=== PATIENT | male | born 1960 | race Caucasian/White ===

== ENCOUNTER 2018-06-30 14:15 | Inpatient (IN) | payer MEDICAID ==
[~2018-06-30] VITALS: Ht 177.8 cm; Wt 99.8 kg
--- NOTE | 2018-06-30 14:15 | NUR ---
PT [facility]IB RA[facility]PT PLACED IN ROOM 2A.
--- NOTE | 2018-06-30 14:25 | NUR ---
PT IS IN ROOM #2A. DR SOTOMAYOR EVALUATED THE PT.
--- NOTE | 2018-06-30 14:27 | NUR ---
TELESTROKE ([phone]) WAS CALLED BY JEANNETTE RIVAS. TALKED TO DISPATCHER JV. NEUROLOGIST DR ROPER WAS PAGED.
--- NOTE | 2018-06-30 14:30 | NUR ---
Pt's brother arrived and is speaking with at bedside. Pt's brother providing new information not reported by EMS. Pt's brother states the pt called him around 0900 this morning with dysphagia.
--- NOTE | 2018-06-30 14:34 | NUR ---
Code Stroke activated per order, Telestroke Line called.
--- NOTE | 2018-06-30 14:40 | NUR ---
Pt to CT with ACLS guidelines in place with rfid technician and Ravindra MACHADO.
--- NOTE | 2018-06-30 14:43 | NUR ---
spoke with (Neuro) via telephone.
[2018-06-30] MEDS ORDERED: IV NORMAL SALINE 500 ML BAG IV ONE (14:45)
[2018-06-30 14:48] LABS: BASOPHILS # (AUTO) 0.1 K/uL (0.0-8.0); BASOPHILS % (AUTO) 0.9 % (0.0-2.0); EOSINOPHILS # (AUTO) 0.1 K/uL (0.0-0.7); HEMATOCRIT 43.9 % (36.7-47.1); HEMOGLOBIN 14.8 g/dL (12.5-16.3); LYMPHOCYTES # (AUTO) 1.7 K/uL (20.0-40.0); LYMPHOCYTES % (AUTO) 15.9 % (20.5-51.5); MEAN CORPUSCULAR HEMOGLOBIN 27.4 uug (23.8-33.4); MEAN CORPUSCULAR HGB CONC 34 g/dL (32.5-36.3); MEAN CORPUSCULAR VOLUME 81.5 fL (73.0-96.2); MONOCYTES # (AUTO) 0.8 K/uL (2.0-10.0); MONOCYTES % (AUTO) 7.3 % (0.0-11.0); NEUTROPHILS % (AUTO) 74.9 % (38.5-71.5); PLATELET COUNT (AUTO) 185 K/uL (152-348); RED BLOOD CELL COUNT(AUTO) 5.39 MIL/uL (4.06-5.63); WHITE BLOOD COUNT (AUTO) 10.7 K/uL (3.6-10.2)
[2018-06-30] MEDS ORDERED: IV NORMAL SALINE 250 ML IV ONE (14:52)
[2018-06-30] MEDS ORDERED: NORMAL SALINE FLUSH 10 ML DISP.SYRIN ONE (14:52)
[2018-06-30] MEDS ORDERED: IOHEXOL 350 100 ML INFUS..BTL ONE (14:52)
[2018-06-30] MEDS ORDERED: SWABABLE VALVE TRANSFER SET EA MC ONE (14:52)
[2018-06-30] MEDS ORDERED: ASPIRIN EC 325 MG TABLET.DR PO ONE (15:26)
[2018-06-30] MEDS ORDERED: ASPIRIN EC 325 MG TABLET.DR PO SCH (15:30)
--- NOTE | 2018-06-30 15:59 | NUR ---
CODE STROKE WAS CLEARED BY DR SOTOMAYOR. PT IS RESTING IN BED COMFOTRTABLY. CONTINUE TO MONITOR THE PT.
[2018-06-30] MEDS ORDERED: IBUPROFEN PO (16:55)
--- NOTE | 2018-06-30 17:39 | NUR ---
PT WAS TRANSFERED TO [facility] ROOM #318. REPORT WAS GIVEN TO RN [facility].
[2018-06-30 17:47] VITALS: BP 143/82
[2018-06-30] MEDS ORDERED: hydrALAZINE HCL 20 MG/1 ML VIAL IV PRN (19:30)
[2018-06-30 19:51] LABS: *BILIRUBIN,URIN NEGATIVE (NEGATIVE); *BLOOD, URINE NEGATIVE (NEGATIVE); *COLOR,URINE YELLOW (YELLOW); *KETONES,URINE NEGATIVE (NEGATIVE); *UROBILINOGEN,URINE 0.2 E.U./dl (NORMAL); LEUKOCYTE ESTERASE ,URINE NEGATIVE (NEGATIVE); NITRITE, URINE NEGATIVE (NEGATIVE); PH,URINE 7.5 (5.0-8.0); UGLUCOSE NEGATIVE (NEGATIVE)
[2018-06-30 20:00] VITALS: BP 138/94
[2018-06-30 20:00] LABS: *CLARITY,URINE SLIGHTLY HAZY (CLEAR)
--- NOTE | 2018-06-30 20:00 | NUR ---
RECEIVED PT AWAKE, ALERT & ORIENTED X3. LEFT UPPER & LOWER EXTREMITIES WEAK & HAS R FACIAL DROOP. DENIES DISCOMFORTS. HEP LOCK INTACT & PATENT ON LEFT AC. C-SCOPE SR NO ECTOPY. NOT IN ANY DISTRESS.
[2018-06-30 20:01] LABS: MUCUS,URINE MANY /LPF (0-FEW); RBC,URINE 0-3 /HPF (0-3); URINE AMORPHOUS PHOSPHATES MODERATE /HPF
[2018-06-30 20:11] LABS: *AMPHETAMINE, URINE NEGATIVE (NEGATIVE); *BARBITURATE, URINE NEGATIVE (NEGATIVE); *CANNABINOID, URINE NEGATIVE (NEGATIVE); *COCCAINE, URINE NEGATIVE (NEGATIVE); *OPIATE, URINE NEGATIVE (NEGATIVE); *PHENCYCLIDINE SCREEN,URINE NEGATIVE (NEGATIVE)
[2018-06-30 20:39] VITALS: BP 138/94
--- NOTE | 2018-06-30 20:45 | NUR ---
DR HAMPTON WAS HERE & EVALUATED PT. W/ ORDERS
[2018-06-30] MEDS: BLOOD SUGAR DIAGNOSTIC 1 EACH STRIP VI SCH (21:11)
--- NOTE | 2018-06-30 23:00 | NUR ---
CLEANED & KEPT DRY, PT IS INCONT. OF URINE @ TIMES. REPOSITIONED HIMSELF .
[2018-07-01] VITALS (10 sets, daily range): BP systolic 91–148; BP diastolic 48–96
[2018-07-01] MEDS ORDERED: BLOOD SUGAR DIAGNOSTIC 1 EACH STRIP VI SCH
--- NOTE | 2018-07-01 06:00 | NUR ---
NEURO REMAINS THE SAME. HEP LOCK INTACT & PATENT.
[2018-07-01] MEDS: BLOOD SUGAR DIAGNOSTIC 1 EACH STRIP VI SCH ×4 (06:54→20:54)
[2018-07-01 07:12] LABS: BASOPHILS % (AUTO) 0.6 % (0.0-2.0); EOSINOPHILS # (AUTO) 0.2 K/uL (0.0-0.7); HEMATOCRIT 46.5 % (36.7-47.1); HEMOGLOBIN 15.8 g/dL (12.5-16.3); LYMPHOCYTES # (AUTO) 1.5 K/uL (20.0-40.0); LYMPHOCYTES % (AUTO) 17.9 % (20.5-51.5); MEAN CORPUSCULAR HEMOGLOBIN 27.7 uug (23.8-33.4); MEAN CORPUSCULAR HGB CONC 34 g/dL (32.5-36.3); MEAN CORPUSCULAR VOLUME 81.5 fL (73.0-96.2); MONOCYTES # (AUTO) 0.7 K/uL (2.0-10.0); MONOCYTES % (AUTO) 8.9 % (0.0-11.0); NEUTROPHILS # (AUTO) 5.7 K/uL (1.8-8.9); NEUTROPHILS % (AUTO) 70.6 % (38.5-71.5); PLATELET COUNT (AUTO) 191 K/uL (152-348); WHITE BLOOD COUNT (AUTO) 8.1 K/uL (3.6-10.2)
[2018-07-01 07:49] LABS: POTASSIUM 3.5 mmol/L (3.5-5.1)
[2018-07-01 07:50] LABS: CREATININE 0.9 mg/dL (0.6-1.3)
[2018-07-01] MEDS: ASPIRIN EC 81 MG TABLET.DR PO SCH (08:43)
[2018-07-01] MEDS: DOCUSATE SODIUM 100 MG CAPSULE PO SCH (08:43)
--- NOTE | 2018-07-01 15:02 | NUR ---
Social work consult: bingo worker received consult for "stroke". bingo worker arrived at patient bedside and introduced self, role, and purpose of visit. Patient was open for conversation. Patient presents with normal affect and euthymic mood. Patient appearance is neat and clean. Patient speech is within normal limits, though difficult to understand at times due to Haitian accent. Patient thought process is linear and goal-directed. Patient thought content is within normal limits given situation. Patient insight is intact and judgment intact. Patient is a 57 year old male who was admitted to [facility] after a CVA stroke. Patient reports that he was at home and felt "dizzy" and fell. Patient states he later called 911 to come to hospital. 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 Patient is supported by his brother, Esvin Robles [[phone]], and his two nieces. Per patient, his family is coming to visit later this afternoon. bingo worker facilitated conversation about patient recent stroke and how patient is adjusting to prognosis. Patient expressed concern that he will be unable to work as a driver's license reviewing officer. bingo worker offered supportive and emotional counseling to patient. Patient thought process is linear and goal-directed as patient is focused on recovering stating "I need to do exercises and go to the gym". 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 bingo worker informed patient of other resources such as counseling and community support. Patient stated that as of now he would just like disability resources. bingo worker left room to retrieve resources. bingo worker returned to room with disability resources including "What is disability insurance?", "Am I Eligible for Disability Insuracne?", "Applying for Disability Insurance Process", and informed patient that criminal justice social worker had submitted a request for Disability Application to be mailed to his address: [address] [place] [address]. [address], [place] [address]. Patient agreeable and accepting of resources. bingo worker provided patient with contact information and will remain available to patient as needed during admission to hospital.
--- NOTE | 2018-07-01 18:48 | NUR ---
Pt is observed resting bed. Pt failed swallow eval. Tomorrow pt will have video swallow. pt shows no signs of respiratory distress at this time. continue to monitor pt.
[2018-07-01] MEDS: KETOROLAC TROMETHAMINE 15 MG INJ IVP PRN (19:52)
[2018-07-01] MEDS: IV D5/ 0.9% NACL 1,000 ML IV PRN (19:52)
[2018-07-02] VITALS: BP 135/79
[2018-07-02 04:00] VITALS: BP 128/94
[2018-07-02] MEDS: BLOOD SUGAR DIAGNOSTIC 1 EACH STRIP VI SCH ×4 (06:32→20:55)
--- NOTE | 2018-07-02 07:09 | NUR ---
INFORMATION SENT: FACESHEET,UR 07/01,CONSULTATION,IMAGING REPORT,PROGRESS NOTES,24 HOURS REPORT INSURANCE NAME: [facility] FAX NUMBER: [phone] FAX SENT
--- NOTE | 2018-07-02 07:30 | NUR ---
report received from pm shift. patient is awake and conversant. has left sided weakness. IV fluid infusing at 75ml/hr.ekg is sinus rhythm Addendum: 07/02/18 at 0802 by HAI DAVID RN Amended: Links added. Addendum: 07/02/18 at 1011 by HAI DAVID RN duplicated entry
[2018-07-02] MEDS: IV D5/ 0.9% NACL 1,000 ML IV PRN ×2 (08:09→23:03)
[2018-07-02] MEDS: ASPIRIN EC 81 MG TABLET.DR PO SCH (09:00)
[2018-07-02] MEDS: DOCUSATE SODIUM 100 MG CAPSULE PO SCH (09:00)
[2018-07-02 11:19] VITALS: BP 139/81
--- NOTE | 2018-07-02 11:27 | NUR ---
accuchech 120, no coverage Addendum: 07/02/18 at 1128 by HAI DAVID RN Amended: Links added.
--- NOTE | 2018-07-02 12:20 | NUR ---
seen by dr gutierrez. is downgraded to telemetry Addendum: 07/02/18 at 1221 by HAI DAVID RN Amended: Links added.
[2018-07-02] MEDS ORDERED: ASPIRIN 81 MG TAB.CHEW PO SCH (12:30)
[2018-07-02] MEDS ORDERED: CLOPIDOGREL 75 MG TABLET PO SCH (12:30)
--- NOTE | 2018-07-02 14:05 | NUR ---
medicated for constipation Addendum: 07/02/18 at 1415 by HAI DAVID RN Amended: Links added. Addendum: 07/02/18 at 1421 by HAI DAVID RN wrong entry
--- NOTE | 2018-07-02 14:38 | NUR ---
ordered soft diet with nectar thickened liquid Addendum: 07/02/18 at 1511 by HAI DAVID RN Amended: Links added.
[2018-07-02 15:17] VITALS: BP 129/90
[2018-07-02] MEDS ORDERED: DEXTROSE 50% 50 ML DISP.SYRIN IV PRN (17:00)
[2018-07-02] MEDS ORDERED: INSULIN REGULAR, HUMAN 300 UNIT/3 ML VIAL SQ PRN (17:00)
--- NOTE | 2018-07-02 17:19 | NUR ---
high risk VTE notification to sent. placed back on accuchecks ac and hs. Addendum: 07/02/18 at 1720 by HAI DAVID RN Amended: Links added.
[2018-07-02 20:06] VITALS: BP 92/50
--- NOTE | 2018-07-02 20:10 | NUR ---
Received patient from the day shift. Pt awake, alert and oriented x4, able to follow commands. Pt has no complaints of pain, dizziness or SOB at this time. Good appetite and fluid intake. Pertinent assessments and unit orientation completed. Safety measures in place. Call light within reach. Will continue to monitor and carry out all orders.
[2018-07-02] MEDS ORDERED: ATORVASTATIN 40 MG TABLET PO SCH (21:00)
[2018-07-03 00:25] VITALS: BP 127/100
[2018-07-03 05:26] VITALS: BP 138/99
[2018-07-03] MEDS: BLOOD SUGAR DIAGNOSTIC 1 EACH STRIP VI SCH ×4 (06:35→20:58)
--- NOTE | 2018-07-03 06:50 | NUR ---
Pt awake, alert and oriented x4, able to follow commands. Pt has no complaints of pain, dizziness or SOB at this time. Safety measures in place. Call light within reach. Will endorse the report to the day shift nurse. Blood glucose 114.
--- NOTE | 2018-07-03 07:20 | NUR ---
PATIENT IN THE BED, A/O X4, NO COMPLAINS OF PAIN, NO SOB, SAFETY AND COMFORT MEASURES ARE IMPLEMENTED, WILL CONTINUE WITH PLAN OF CARE
[2018-07-03] MEDS: ASPIRIN EC 81 MG TABLET.DR PO SCH (08:24)
[2018-07-03] MEDS: DOCUSATE SODIUM 100 MG CAPSULE PO SCH (08:24)
[2018-07-03 11:06] VITALS: BP 145/81
[2018-07-03] MEDS: KETOROLAC TROMETHAMINE 15 MG INJ IVP PRN ×2 (11:12→21:42)
[2018-07-03] MEDS: IV D5/ 0.9% NACL 1,000 ML IV PRN (12:12)
--- NOTE | 2018-07-03 13:00 | NUR ---
PATIENT A/O X 4 BUT HE HAS LEFT SIDE WEAKNESS, SLURRED SPEECH PT AND OT WAS ORDERED, SWALLOWING TREATMENT WAS DONE, SOFT DIET, CBC AND BNP IN PROGRESS,NO PAIN , NO S/S OF DISTRESS NOTED, PATIENT IS RESTING , WATCHING TV
--- NOTE | 2018-07-03 14:30 | NUR ---
PT BROUGHT UP VIA BED, 2L NC SAT 94%, SKIN INTACT WITH BRUISES AND SKIN TAGS, PT IS HARD OF HEARING, AND HAS POOR VISION, AOX3, ON A PUREE DIET. STABLE AT THIS TIME, NO SIGNS OF RESPIRATORY DISTRESS AT THIS TIME. CONTINUE TO MONITOR. Addendum: 07/04/18 at 0732 by CHENG ACOSTA RN wrong patient
[2018-07-03 15:08] VITALS: BP 131/86
[2018-07-03] MEDS ORDERED: Z GUARD REMEDY PASTE 57 GM TUBE TOP PRN (15:30)
--- NOTE | 2018-07-03 18:21 | NUR ---
PATIENT IS IN THE BED, WATCHING TV COMFORTABLY, HE IS ON TELE WITH SINUS RHYTHM, BUNDLE BRANCH BLOCK, NO S/S OF DISTRESS NOTED, HE IS COMPLAINT WITH THE PLAN OF CARE AND MEDICATION REGIMEN, D/C PLANNING TO ACUTE REHAB ON THURSDAY, WILL CONTINUE TO MONITOR
[2018-07-03 21:09] VITALS: BP 148/91
[2018-07-04 01:12] VITALS: BP 147/93
[2018-07-04] MEDS: IV D5/ 0.9% NACL 1,000 ML IV PRN ×2 (01:54→18:17)
[2018-07-04 04:59] VITALS: BP 134/90
--- NOTE | 2018-07-04 06:40 | NUR ---
PATIENT IS IN BED AOX4, REPORTS MILD PAIN IN THE NECK. NO CHANGES IN NEURO STATUS FROM LAST NIGHT. PATIENT IS IN GOOD MOOD, REPORTED GOOD APPETITE. COMFORT AND SAFETY PROVIDED. WILL CONTINUE TO MONITOR.
--- NOTE | 2018-07-04 06:44 | NUR ---
Pt slept well at night.Pt has no complaints of pain, dizziness, or SOB. Call light within reach. comfort and safety provided. Will endorse the report to the day shift nurse.
[2018-07-04] MEDS: BLOOD SUGAR DIAGNOSTIC 1 EACH STRIP VI SCH ×4 (07:15→21:14)
[2018-07-04] MEDS: ASPIRIN EC 81 MG TABLET.DR PO SCH (08:33)
[2018-07-04] MEDS: DOCUSATE SODIUM 100 MG CAPSULE PO SCH (08:34)
[2018-07-04 08:44] VITALS: BP 136/92
--- NOTE | 2018-07-04 11:30 | NUR ---
PT REFUSED INSULIN COVERAGE. BS 138. PT SHOWS NO SIGNS OF HYPER OR HYPO GLYCEMIA. CONTINUE TO MONITOR PT.
[2018-07-04 11:48] VITALS: BP 112/75
[2018-07-04 16:00] VITALS: BP 133/98
--- NOTE | 2018-07-04 16:42 | NUR ---
Pt refused to have accu check done. pt states he is "pre-diabetic" and that he doesn't want to be poked anymore. Pt is stable with no signs of hyper and hypo glycemia at this time. Continue to monitor pt.
--- NOTE | 2018-07-04 18:41 | NUR ---
PT IS RESTING IN BED WITH NO SIGNS OF DISTRESS. PT C/O PAIN IN NECK AND SHOULDERS, WILL GIVE PAIN MED. NO SIGNS OF HYPER OR HYPO GLYCEMIA AT THIS TIME. PT IS ON ROOM AIR. SPEECH IS SLURRED BUT IMPROVED SINCE YESTERDAY. PT STILL HAS LEFT SIDED WEAKNESS. CONTINUE TO MONITOR PT.
[2018-07-04] MEDS: KETOROLAC TROMETHAMINE 15 MG INJ IVP PRN (18:45)
--- NOTE | 2018-07-04 19:45 | NUR ---
Received patient awake and alert in bed. No acute distress noted. No complaints of SOB. Complains of some pain, but said morning nurse just gave pain medication and is helping. IV on the left AC was dislodged during shift report and morning nurse inserted new IV on the right forearm gauge #22 infusing IVF. Safety measures initiated. Bed is low and locked, call light is within reach. Will continue to monitor.
[2018-07-04 20:06] VITALS: BP 134/103
[2018-07-05 00:46] VITALS: BP 134/86
[2018-07-05 04:36] VITALS: BP 133/88
--- NOTE | 2018-07-05 06:18 | NUR ---
Patient slept well throughout shift. Had no signs of acute distress. Complains of neck and back pain, offered his PRN pain medication, but he said maybe later. No complaints of SOB. No neuro changes since beginning of shift. IVF running on the left forearm. All needs were met. Safety measures given.
[2018-07-05] MEDS: BLOOD SUGAR DIAGNOSTIC 1 EACH STRIP VI SCH ×4 (06:35→20:12)
[2018-07-05 08:00] VITALS: BP 141/89
--- NOTE | 2018-07-05 08:12 | NUR ---
INFORMATION SENT: FACESHEET,PROGRESS NOTES 07/03,07/04,UR-07/03,07/04,24 HOURS REPORT INSURANCE NAME: [employer] [facility] FAX NUMBER: [phone] FAX SENT
--- NOTE | 2018-07-05 09:00 | NUR ---
Patient is awake and alert, orientation x 4. Patient has severe left side weakness, and is given encouragement to work with weak side. No co pain. Patient has incont of urine, cleaned and partial linen change. Reid Whiteside RN
[2018-07-05] MEDS: ASPIRIN EC 81 MG TABLET.DR PO SCH (09:13)
[2018-07-05] MEDS: DOCUSATE SODIUM 100 MG CAPSULE PO SCH (09:14)
[2018-07-05] MEDS: KETOROLAC TROMETHAMINE 15 MG INJ IVP PRN (09:16)
[2018-07-05] MEDS: IV D5/ 0.9% NACL 1,000 ML IV PRN ×2 (09:17→22:53)
--- NOTE | 2018-07-05 14:00 | NUR ---
Patient worked with PT, and OT today, and needs much encouragement with therapists. He is able to follow directions, and does active ROM with right side. Reid Whiteside RN
[2018-07-05 15:27] VITALS: BP 132/88
--- NOTE | 2018-07-05 18:00 | NUR ---
Patient making inquiry to when intrafacility transfer will happen, and updated that transfer is pending approval. Reid Whiteside RN
[2018-07-05 20:36] VITALS: BP 142/103
[2018-07-06 00:56] VITALS: BP 140/75
[2018-07-06 04:00] VITALS: BP 144/62
[2018-07-06] MEDS: BLOOD SUGAR DIAGNOSTIC 1 EACH STRIP VI SCH ×4 (06:37→21:01)
--- NOTE | 2018-07-06 07:23 | NUR ---
Condition unchanged. No acute resp distress. Assisted with all needs. Sinus rhythm on monitor.
[2018-07-06 08:00] VITALS: BP 155/97
[2018-07-06] MEDS: KETOROLAC TROMETHAMINE 15 MG INJ IVP PRN (08:37)
[2018-07-06] MEDS: DOCUSATE SODIUM 100 MG CAPSULE PO SCH (08:38)
[2018-07-06] MEDS: ASPIRIN EC 81 MG TABLET.DR PO SCH (08:38)
[2018-07-06 11:46] VITALS: BP 125/82
--- NOTE | 2018-07-06 13:00 | NUR ---
Patient receiving PT - OT today, and left side weakness, able to do gross motor movement, becomes sleepy when encouraged to flex and extend upper extremity. Reid Whiteside RN
[2018-07-06] MEDS: IV D5/ 0.9% NACL 1,000 ML IV PRN (14:30)
[2018-07-06 16:00] VITALS: BP 135/73
--- NOTE | 2018-07-06 17:00 | NUR ---
Patient has not had BM since admission, and did receive 2 prune juices. He has a good appetite. Reid Whiteside RN
[2018-07-06 19:24] VITALS: BP 150/100
--- NOTE | 2018-07-06 19:40 | NUR ---
Received patient awake and alert in bed. No signs of acute distress noted. No complaints of SOB. Complains of pain 10/10. Will check PRN pain medications. IVF running on the right forearm. Safety measures initiated. Bed is low and locked, call light is within reach. Will continue to monitor.
[2018-07-06] MEDS: HYDROCODONE/APAP 5-325MG TABLET PO PRN (20:57)
--- NOTE | 2018-07-06 21:08 | NUR ---
Ask Dr. Pendleton if I can renew PRN pain medication Toradol inj 15 mg, said to try [place] 5-325mg Q6H PRN, patient agreed. Dr. Pendleton said pharmacy does not recommend Toradol. [place] given, will continue to monitor.
[2018-07-07] MEDS: IV D5/ 0.9% NACL 1,000 ML IV PRN (01:39)
[2018-07-07 03:27] VITALS: BP 135/92
--- NOTE | 2018-07-07 06:00 | NUR ---
PATIENT SLEPT WELL THROUGHOUT NIGHT. NO SIGNS OF ACUTE DISTRESS. NO COMPLAINTS OF SOB OR PAIN AFTER GIVING PRN PAIN MEDICATION X1. IVF RUNNING ON THE RIGHT FOREARM. PATIENT STILL NOTED WITH SLURRED SPEECH, BUT ABLE TO MAKE NEEDS KNOWN. SAFETY MEASURES GIVEN.
[2018-07-07] MEDS: BLOOD SUGAR DIAGNOSTIC 1 EACH STRIP VI SCH ×4 (06:45→20:48)
[2018-07-07 07:52] LABS: BASOPHILS % (AUTO) 0.6 % (0.0-2.0); EOSINOPHILS # (AUTO) 0.3 K/uL (0.0-0.7); EOSINOPHILS % (AUTO) 4.1 % (0.0-7.0); HEMOGLOBIN 15.7 g/dL (12.5-16.3); LYMPHOCYTES # (AUTO) 1.9 K/uL (20.0-40.0); MEAN CORPUSCULAR HEMOGLOBIN 27.4 uug (23.8-33.4); MEAN CORPUSCULAR HGB CONC 34 g/dL (32.5-36.3); MONOCYTES # (AUTO) 0.9 K/uL (2.0-10.0); NEUTROPHILS % (AUTO) 61.3 % (38.5-71.5); PLATELET COUNT (AUTO) 184 K/uL (152-348); RED BLOOD CELL COUNT(AUTO) 5.73 MIL/uL (4.06-5.63); WHITE BLOOD COUNT (AUTO) 8.1 K/uL (3.6-10.2)
[2018-07-07 07:59] LABS: CREATININE 0.8 mg/dL (0.6-1.3); POTASSIUM 3.7 mmol/L (3.5-5.1)
[2018-07-07] MEDS: DOCUSATE SODIUM 100 MG CAPSULE PO SCH (08:22)
[2018-07-07] MEDS: ASPIRIN EC 81 MG TABLET.DR PO SCH (08:22)
[2018-07-07] MEDS ORDERED: BISACODYL 10 MG SUPP.RECT RC ONE (08:30)
--- NOTE | 2018-07-07 09:11 | NUR ---
INFORMATION SENT: DARLENE CARTER NOTES 07/06,24 HOURS REPORT FAXED TO:[phone] / [phone] FAX SENT
[2018-07-07 11:46] VITALS: BP 156/96
[2018-07-07 11:59] VITALS: BP 146/86
--- NOTE | 2018-07-07 12:00 | NUR ---
BS 158, and no insulin necessary per do. Patient is co no bm, and will do intervention. Reid Whiteside RN
--- NOTE | 2018-07-07 14:00 | NUR ---
Patient unable to have stool, and found doing digital removal on himself. I did digitally remove large amout of stool. Cleaned patient, and partial linen change. Reid Whiteside RN
[2018-07-07 15:57] VITALS: BP 138/115
[2018-07-07] MEDS: HYDROCODONE/APAP 5-325MG TABLET PO PRN (16:06)
--- NOTE | 2018-07-07 17:30 | NUR ---
Patient with abd pain, and medicated with norco 5 mg/325 one tab. BS 149, and no insulin. Reid Whiteside RN
[2018-07-07 19:31] VITALS: BP 157/105
--- NOTE | 2018-07-07 20:00 | NUR ---
Received patient laying in bed. In no acute distress noted. Patient is A/O x 4, [place] speaking with some slurred speak. Denies pain and SOB. In room air. Noted left severe left sided weakness. IVF infusing on the right hand. Aspiration precaution observed. Safety initiated. Call light within reach. Will continue to monitor.
[2018-07-07 21:02] VITALS: BP 127/82
[2018-07-08 03:32] VITALS: BP 138/90
--- NOTE | 2018-07-08 05:42 | NUR ---
Patient slept intermittently t/o the night. Patient remains on room air. IVF infusing on the right hand. Patent and intact. Vital signs stable. Good urine output. Aspiration precaution observed t/o shift. Neuro assessment done t/o shift. Noted left sided weakness. Safety and comfort measures maintained t/o shift. All meds given as ordered. All needs met.
[2018-07-08] MEDS: IV D5/ 0.9% NACL 1,000 ML IV PRN (06:07)
[2018-07-08] MEDS: HYDROCODONE/APAP 5-325MG TABLET PO PRN ×2 (06:08→20:50)
[2018-07-08] MEDS: BLOOD SUGAR DIAGNOSTIC 1 EACH STRIP VI SCH (06:35)
--- NOTE | 2018-07-08 07:30 | NUR ---
PATIENT RECEIVED ON BED, AWAKE AAOX4, NO ACUTE DISTRESS NOTED. IV ACCESS ON RIGHT FA #20 INTACT AND PATENT RUNNING D5NS @ 75CC/HR INFUSING WELL.BLOOD SUGAR THIS AM 117. DVT PUMPS ON, NO COMPLAINTS OF PAIN/DISCOMFORT. CALL LIGHT WITHIN REACH. WILL CONTINUE TO MONITOR CLOSELY.
[2018-07-08] MEDS: ASPIRIN EC 81 MG TABLET.DR PO SCH (08:59)
[2018-07-08] MEDS: DOCUSATE SODIUM 100 MG CAPSULE PO SCH (09:00)
--- NOTE | 2018-07-08 09:55 | NUR ---
INFORMATION SENT: FACESHEET,CONSULTATION,24 HOURS,IMAGING,PROGRES NOTES 07/07 INSURANCE NAME: [facility] FAX NUMBER: [phone] / [phone] FAX SENT
[2018-07-08 11:18] VITALS: BP 105/73
[2018-07-08] MEDS ORDERED: IV NS 1000 ML 1,000 ML IV PRN (11:45)
[2018-07-08 15:04] VITALS: BP 110/68
--- NOTE | 2018-07-08 18:53 | NUR ---
PATIENT REMAINED STABLE THROUGHOUT SHIFT. NO ROSE. IV ACCESS ON RIGHT FA I#20 INTACT AND PATENT, SALINE LOCK. SEEN AND EXAMINED BY ST, ORDERED NECTAR THICKENED LIQUIDS. ROUTINE NEUROCHECKS DONE. ALL NEEDS ATTENDED AND ANTICIPATED. WILL CONTINUE TO MONITOR CLOSELY.
[2018-07-08 19:24] VITALS: BP 123/92
--- NOTE | 2018-07-08 20:00 | NUR ---
RECEIVED PATIENT AWAKE IN BED. PATIENT IS A/O X 3-4. DENIES PAIN AT THIS TIME. NO RESP. DISTRESS NOTED. VS WNL. NEURO-CHECKS DONE. H/L INTACT AND PATENT. CALL LIGHT IN REACH, ALL NEEDS ATTENDED. WILL CONTINUE TO MONITOR AND ASSESS.
--- NOTE | 2018-07-08 20:50 | NUR ---
PATIENT STARTED ON IVF ORDERED. WILL CONTINUE TO MONITOR AND ASSESS.
[2018-07-09 03:23] VITALS: BP 148/94
--- NOTE | 2018-07-09 06:34 | NUR ---
PATIENT IN BED. SLEPT AT INTERVALS. VSS. DENIES PAIN OR DISCOMFORT. NO RESP. DISTRESS NOTED. IVF INFUSING WELL ORDERED. BED ALARM ON. CALL LIGHT IN REACH. ALL NEEDS ATTENDED. WILL CONTINUE TO MONITOR.
[2018-07-09 06:37] LABS: CREATININE 0.8 mg/dL (0.6-1.3); POTASSIUM 3.6 mmol/L (3.5-5.1)
[2018-07-09 06:48] LABS: BASOPHILS # (AUTO) 0.1 K/uL (0.0-8.0); BASOPHILS % (AUTO) 0.8 % (0.0-2.0); EOSINOPHILS # (AUTO) 0.3 K/uL (0.0-0.7); EOSINOPHILS % (AUTO) 4.1 % (0.0-7.0); HEMATOCRIT 45.7 % (36.7-47.1); HEMOGLOBIN 15.5 g/dL (12.5-16.3); LYMPHOCYTES # (AUTO) 2.3 K/uL (20.0-40.0); LYMPHOCYTES % (AUTO) 27.9 % (20.5-51.5); MEAN CORPUSCULAR HEMOGLOBIN 27.6 uug (23.8-33.4); MEAN CORPUSCULAR HGB CONC 34 g/dL (32.5-36.3); MEAN CORPUSCULAR VOLUME 81.7 fL (73.0-96.2); MONOCYTES % (AUTO) 11.7 % (0.0-11.0); NEUTROPHILS # (AUTO) 4.6 K/uL (1.8-8.9); NEUTROPHILS % (AUTO) 55.5 % (38.5-71.5); PLATELET COUNT (AUTO) 194 K/uL (152-348); WHITE BLOOD COUNT (AUTO) 8.3 K/uL (3.6-10.2)
--- NOTE | 2018-07-09 07:30 | NUR ---
PATIENT RECEIVED ON BED, AWAKE AAOX4, NO ACUTE DISTRESS NOTED. LEFT UPPER AND LOWER SEVERE WEAKNESS NOTED IV ACCESS ON RIGHT FA #20 INTACT AND PATENT RUNNING NS @ 75CC/HR INFUSING WELL. DVT PUMPS ON, NO COMPLAINTS OF PAIN/DISCOMFORT. CALL LIGHT WITHIN REACH. WILL CONTINUE TO MONITOR CLOSELY.
--- NOTE | 2018-07-09 07:34 | NUR ---
INFORMATION SENT: FACESHEET,PROGRESS NOTES 07/08,24 HOURS REPORT INSURANCE NAME: [facility] FAX NUMBER: [phone] FAX SENT
[2018-07-09] MEDS: ASPIRIN EC 81 MG TABLET.DR PO SCH (08:21)
[2018-07-09] MEDS: DOCUSATE SODIUM 100 MG CAPSULE PO SCH (08:22)
[2018-07-09 11:03] VITALS: BP 108/73
[2018-07-09] MEDS ORDERED: DOCU100C36 PO (11:11)
[2018-07-09] MEDS ORDERED: ATOR20TA PO (11:11)
[2018-07-09] MEDS ORDERED: HYDR-3326 PO (11:11)
[2018-07-09] MEDS ORDERED: ASPI-618 PO (11:11)
--- NOTE | 2018-07-09 12:40 | NUR ---
PATIENT DISCHARGED TO [facility] IN STABLE CONDITION REPORT GIVEN EARLIER TO AMARILIS MACHADO. DISCHARGE PAPERS AND INSTRUCTIONS GIVEN AND EXPALINED TO PATIENT. BELONGINGS LIST SIGNED AND COMPLETED, IV ACCESS REMOVED. ID BAND DISPOSED PROPERLY, PATIENT REFUSED DISCHARGE PICTURES OF SACRAL. LEFT HOSPITAL VIA AMBULANCE ACCOMPANIED BY 2 EMT.
--- NOTE | 2018-07-12 09:08 | NUR ---
INFORMATION SENT: EMMA,DISCHARGE SUMMARY. INSURANCE NAME[facility] [employer] [facility] NUMBER: [phone] FAX SENT Addendum: 07/12/18 at 0913 by MISSY BERMEO [facility] INFORMATION SENT: EMMA,PROGRESS NOTES 07/09,UR 07/09,DISCHARGE SUMMARY. INSURANCE NAME: [employer] [facility] NUMBER: [phone] FAX SENT
--- NOTE | 2018-07-12 09:11 | NUR ---
INFORMATION SENT: FACESHEET,PROGRESS NOTES 07/09,UR 07/09,DISCHARGE SUMMARY. INSURANCE NAME: [employer] [facility] FAX NUMBER: [phone] FAX SENT
== END 2018-07-09 12:45 | DRG 45 ==
LOC: ER 14:15 → DOU3 16:59 → TELE-TD3 17:55 → TELE3 07-02 11:13 → MEDSURG3 07-06 14:34
PROVIDERS: ADMIT Internal Medicine; ATTEND Internal Medicine
DX: I63.9 Cerebral infarction, unspecified (principal); G81.94 Hemiplegia, unspecified affecting left nondominant side; I11.9 Hypertensive heart disease without heart failure; R40.2412 Glasgow coma scale score 13-15, at arrival to emergency department; R29.709 NIHSS score 9; I69.328 Other speech and language deficits following cerebral infarction; K21.9 Gastro-esophageal reflux disease without esophagitis; E78.5 Hyperlipidemia, unspecified
CPT/HCPCS: 36415; 70030-TC; 70496; 71045; 72100; 74230; 80307; 85025; 85730; 92526; 92610; 92611; 93005; 93307; 93880; 97110; 97112; 97165; 97530; 97535; A4663; G0378; J0360; J1815; J1885; J3490; J7030; J7042; J7050; Q9967